=== PATIENT | female | born 1975 | race African-American/Black ===

== ENCOUNTER 2020-04-02 07:51 | Inpatient (IN) | payer OTHER ==
[2020-03-28 11:29] LABS: BASOPHILS % 0.4 % (0.0-1.0); EOSINOPHILS # (AUTO) 0.1 (0.0-0.4); EOSINOPHILS % 0.8 % (0.0-6.0); HEMATOCRIT 32.6 % (34.2-44.1); HEMOGLOBIN 10.3 g/dL (12.0-16.0); LYMPHOCYTES # (AUTO) 1.8 (1.0-3.2); MEAN CORPUSCULAR HGB CONC 31.6 g/dL (31-35); MEAN CORPUSCULAR VOLUME 85.3 fL (81-99); MONOCYTES # (AUTO) 0.6 (0.2-0.8); NEUTROPHILS # (AUTO) 4.9 (2.1-6.9); NEUTROPHILS % 66.4 % (38.7-80.0); PLATELET COUNT 266 x10e3/uL (140-360); RED BLOOD COUNT 3.82 x10e6/uL (3.6-5.1)
[2020-03-28 11:48] LABS: ANION GAP 13.9 mmol/L (8-16); BLOOD UREA NITROGEN 7 mg/dL (7-26); BUN/CREATININE RATIO 9 (6-25); CALCIUM 8.9 mg/dL (8.4-10.2); CARBON DIOXIDE 24 mmol/L (22-29); CHLORIDE 103 mmol/L (98-107); CREATININE, SERUM 0.74 mg/dL (0.57-1.11); EST GLOMERULAR FILTRATION RATE > 60 ML/MIN (60-); GLUCOSE 96 mg/dL (74-118); POTASSIUM 3.9 mmol/L (3.5-5.1); SODIUM 137 mmol/L (136-145)
[~2020-04-02] VITALS: Ht 162.6 cm; Wt 128.4 kg
[~2020-04-02 07:51] MED LIST: MULTI-VITAMIN1 EACH PO; VITAMIN D3125 MCG PO; VITAMIN D3250 MCG
[2020-04-02] MEDS ORDERED: CEFAZOLIN SOD 1 GM/NS 50ML 100 ML IV ONE (08:08)
[2020-04-02] MEDS ORDERED: BUPIVACAINE 0.25% 30ML SDV ONE (08:56)
[2020-04-02] MEDS ORDERED: SCOPOLAMINE 1.5 MG PATCH ONE (10:41)
[2020-04-02] MEDS ORDERED: LIDOCAINE HCL (LTA) 4 ML SOLN ONE (10:42)
[2020-04-02] MEDS ORDERED: ACETAMINOPHEN 1000 MG/100 ML 100 ML IV ONE (10:42)
[2020-04-02] MEDS ORDERED: SUGAMMADEX SODIUM 200 MG/2 ML VIAL IV ONE (10:42)
[2020-04-02] MEDS ORDERED: EPHEDRINE SULFATE INJ 50 MG/ML VIAL ONE (12:51)
[2020-04-02] MEDS ORDERED: SEVOFLURANE INHAL SOLN 250 ML PEN BTL ONE (12:51)
[2020-04-02] MEDS ORDERED: DEXAMETHASONE SOD PHOS INJ 4 MG/ML VIAL ONE (12:51)
[2020-04-02] MEDS ORDERED: LIDOCAINE HCL 2% LOCAL INJ 5 ML SDV VIAL INJ ONE (12:51)
[2020-04-02] MEDS ORDERED: ROCURONIUM BROMIDE 10 MG/ML 5ML VIAL IV ONE (12:51)
[2020-04-02] MEDS ORDERED: ONDANSETRON HCL INJ 2MG/ML 2ML 2 MG/ML VIAL ONE ×2 (12:51→13:13)
[2020-04-02] MEDS ORDERED: LIDOCAINE HCL 2% JELLY 5 ML TUBE ONE (12:51)
[2020-04-02] MEDS ORDERED: PROPOFOL IV EMULSION 10 MG/ML 20 ML VIAL ONE (12:51)
[2020-04-02] MEDS ORDERED: METOCLOPRAMIDE HCL 10 MG/2ML VIAL ONE (13:13)
[2020-04-02] MEDS ORDERED: MEPERIDINE HCL INJ 25 MG/ML VIAL ONE (13:28)
[2020-04-02] MEDS ORDERED: FENTANYL CITRATE/PF 100MCG/2 ML INJ ONE (14:07)
[2020-04-02 14:24] VITALS: BP 151/86
[2020-04-02] MEDS ORDERED: ONDANSETRON HCL INJ 2MG/ML 2ML 2 MG/ML VIAL IV PRN (14:45)
[2020-04-02 14:48] VITALS: BP 51/86
[2020-04-02 14:56] VITALS: BP 151/86
[2020-04-02 15:00] VITALS: BP 151/86
[2020-04-02] MEDS: LACTATED RINGER'S 1,000 ML IV SCH (15:31)
[2020-04-02] MEDS: MORPHINE SULFATE INJ 2 MG/ML SYR IV PRN ×4 (15:31→23:20)
[2020-04-02] MEDS ORDERED: SIMETHICONE 80 MG CHEW PO PRN (19:30)
[2020-04-02 20:00] VITALS: BP 141/79
[2020-04-02] MEDS: ENOXAPARIN SOD INJ 40 MG/0.4 ML SYR SC SCH (20:46)
[2020-04-02] MEDS: SIMETHICONE 80 MG CHEW PO SCH (20:46)
[2020-04-03] VITALS: BP 150/69
[2020-04-03] MEDS: LACTATED RINGER'S 1,000 ML IV SCH ×2 (02:31→07:00)
[2020-04-03] MEDS: MORPHINE SULFATE INJ 2 MG/ML SYR IV PRN ×3 (02:44→09:08)
[2020-04-03 04:00] VITALS: BP 173/83
[2020-04-03] MEDS: HYDROCODONE/APAP 7.5MG-325MG 1 EA TAB PO PRN ×2 (04:42→12:06)
[2020-04-03 05:45] LABS: BASOPHILS % 0.1 % (0.0-1.0); HEMATOCRIT 33.4 % (34.2-44.1); HEMOGLOBIN 10.6 g/dL (12.0-16.0); LYMPHOCYTES # (AUTO) 1.6 (1.0-3.2); LYMPHOCYTES % 11.8 % (18.0-39.1); MEAN CORPUSCULAR HEMOGLOBIN 26.6 pg (28-32); MEAN CORPUSCULAR HGB CONC 31.7 g/dL (31-35); MEAN CORPUSCULAR VOLUME 83.9 fL (81-99); MONOCYTES # (AUTO) 1.1 (0.2-0.8); MONOCYTES % 8.1 % (4.4-11.3); NEUTROPHILS # (AUTO) 10.8 (2.1-6.9); NEUTROPHILS % 79.6 % (38.7-80.0); PLATELET COUNT 248 x10e3/uL (140-360); RED BLOOD COUNT 3.98 x10e6/uL (3.6-5.1); RED CELL DISTRIBUTION WIDTH 13.8 % (11.7-14.4)
[2020-04-03 06:29] LABS: ALANINE AMINOTRANSFERASE 36 IU/L (0-55); ALBUMIN 3.4 g/dL (3.5-5.0); ALBUMIN/GLOBULIN RATIO 0.9 (0.8-2.0); ALKALINE PHOSPHATASE 87 IU/L (40-150); ANION GAP 17.1 mmol/L (8-16); BLOOD UREA NITROGEN 5 mg/dL (7-26); BUN/CREATININE RATIO 7 (6-25); CALCIUM 8.7 mg/dL (8.4-10.2); CARBON DIOXIDE 20 mmol/L (22-29); CHLORIDE 100 mmol/L (98-107); EST GLOMERULAR FILTRATION RATE > 60 ML/MIN (60-); GLUCOSE 105 mg/dL (74-118); POTASSIUM 4.1 mmol/L (3.5-5.1); SODIUM 133 mmol/L (136-145)
[2020-04-03 06:50] LABS: MAGNESIUM 1.6 MG/DL (1.3-2.1)
[2020-04-03 08:42] VITALS: BP 149/74
[2020-04-03] MEDS: SIMETHICONE 80 MG CHEW PO SCH (08:50)
[2020-04-03] MEDS: ENOXAPARIN SOD INJ 40 MG/0.4 ML SYR SC SCH (08:51)
[2020-04-03] MEDS ORDERED: CHOLECALCIFEROL 1,000 UNIT TAB PO SCH (09:00)
[2020-04-03] MEDS ORDERED: MULTIVITAMINS/MINERALS TAB PO SCH (09:00)
[2020-04-03 09:30] VITALS: BP 149/74
[2020-04-03] MEDS ORDERED: ZOFRAN4 MG PO (10:08)
[2020-04-03] MEDS ORDERED: TYLENOL # 31 EA PO (10:11)
[2020-04-03] MEDS ORDERED: ONDANSETRON HCL 4 MG ORAL DISINTEGRATING TAB PO PRN (10:30)
[2020-04-03 12:00] VITALS: BP 151/81
== END 2020-04-03 13:11 | disposition home or self-care (01) | DRG 327 ==
LOC: OR 07:51 → PACU V 13:07 → MED/SURG 14:29
PROVIDERS: ADMIT Internal Medicine; ATTEND Internal Medicine
PROC: 0DB64Z3 Excision of Stomach, Percutaneous Endoscopic Approach, Vertical (ICD-10-PCS; 2020-04-02)
PROC: 0DP64CZ Removal of Extraluminal Device from Stomach, Percutaneous Endoscopic Approach (ICD-10-PCS; principal; 2020-04-02 09:30)
DX: K31.1 Adult hypertrophic pyloric stenosis (principal); Z68.42 Body mass index [BMI] 45.0-49.9, adult; K44.9 Diaphragmatic hernia without obstruction or gangrene; E66.01 Morbid (severe) obesity due to excess calories; R73.03 Prediabetes; K21.9 Gastro-esophageal reflux disease without esophagitis; K20.90 Esophagitis, unspecified without bleeding; K66.0 Peritoneal adhesions (postprocedural) (postinfection); Z20.828 Contact with and (suspected) exposure to other viral communicable diseases
CPT/HCPCS: 36415; 80048; 80053; 81025; 83735; 84100; 85025; J0690; J1100; J1650; J2001; J2175; J2270; J2405; J2765; J3010; J7121; U0002